=== PATIENT | female | born 2005 | race Caucasian/White ===

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

== ENCOUNTER 2023-04-27 14:26 | Emergency (ER) | payer OTHER, SELFPAY ==
[2023-04-27 15:12] VITALS: BP 125/64; PULSE 91; RESP 18; TEMP 37.1; O2SAT 98; BMI 40.4
--- NOTE | 2023-04-27 15:16 | ED.ABDPAIN ---
HPI - Abdominal Pain General Chief Complaint: Back Pain/Injury Stated Complaint: black stools Time Seen by Provider: 04/27/23 18:17 Source: patient and old records reviewed Mode of arrival: ambulatory Limitations: no limitations History of Present Illness HPI narrative: 17 yo female with PMH of anxiety, depression here with c/o constipation for months noted black stools for a few days no pepto or Fe - just had normal colored stools. strains and has low back pain. no brb no hx of GIB, not on thinners, refuses rectal exam - tried miralax no relief MD elicited complaint: abdominal pain Pertinent past history: constipation Onset (ago): month(s) (1) Pain Consistency: intermittent Location: diffuse Severity: mild Quality: cramping Radiation: none Migration to: no migration Exacerbating factors: movement Relieving factors: nothing Context: other (hx of same) Associated symptoms: constipation Related Data Home Medications Medication Instructions Recorded Confirmed guanfacine 1 mg tablet 1 mg PO DAILY 10/25/22 10/25/22 sertraline 50 mg tablet 50 mg PO DAILY 10/25/22 10/25/22 Previous Rx's Medication Instructions Recorded benzoyl peroxide 10 % topical gel 1 appl topical DAILY #90 grams 01/16/22 polyethylene glycol 3350 17 17 g PO DAILY #850 grams 10/25/22 gram/dose oral powder (Miralax) tretinoin 0.025 % topical gel 1 appl topical Q OTHER DAY #45 10/25/22 (Retin-A) grams docusate sodium 100 mg capsule 100 mg PO BID PRN constipation #60 04/27/23 (Colace) caps lactulose 20 gram/30 mL oral 20 g (30 mL) PO DAILY PRN laxative 04/27/23 solution effect #1,200 mL sennosides 8.6 mg capsule (senna) 8.6 mg PO BEDTIME PRN constipation 04/27/23 #60 caps Allergies Allergy/AdvReac Type Severity Reaction Status Date / Time No Known Allergies Allergy Verified 04/27/23 15:12 Review of Systems Review of Systems Constitutional : No Weight loss, No Fever, No Chills ENT/Mouth : No sore throat, No Rhinorrhea Eyes: No Swelling, No Redness Cardiovascular : No Chest Pain, No SOB, NoEdema Respiratory : No Cough, No Sputum, No Wheezing Gastrointestinal : no Nausea, no Vomiting, no Diarrhea, positive abdominal Pain, No Hematochezia Genitourinary : No Dysuria, No Urinary Frequency, No Hematuria, No Urgency Musculoskeletal : No joint pain, No Myalgias, No Joint Swelling Skin : No Skin Lesions, No rash Neuro : No Weakness, No Numbness, No Dizziness, No Headache Psych : No Anxiety/Panic, No Depression All other systems reviewed and are negative. [facility] Past Medical History Attestation statement: The following information was validated with the patient. Source: old records reviewed Onset Date is defined in the Problem List Problems that require an onset date and time if occurred within 24 hrs of arrival to the ED Aortic Dissection and Rupture; Neurologic impairment; Cardiopulmonary Arrest; Endotracheal Intubation; Insertion or Replacement of Mechanical Circulatory Assist Device Medical History Depression Surgical History No pertinent past surgical history Social History Social History (Updated 04/27/23 @ 18:24 by Marion Mustafa DO) Alcohol intake: never Patient Tobacco Use Status: Never used Tobacco Advance Directives: No Advance Directives Information Provided: No Cognitive needs: No Hearing needs: No Vision needs: No Physical Exam ED Vital Signs: Vital Signs - 24 hr 04/27/23 15:12 04/27/23 18:19 Temperature 98.8 F 98.3 F Pulse Rate 91 89 Respiratory Rate 18 19 Blood Pressure 125/64 124/68 Pulse Oximetry 98 98 Oxygen Delivery Method Room Air Room Air BMI result Body Mass Index 40.4 Appearance: Alert. Oriented X3. No acute distress. Eyes: Pupils equal, round and reactive to light. ENT: Pharynx normal. Neck: Normal inspection. Neck supple. CVS: Normal heart rate and rhythm. Pulses normal. Respiratory: No respiratory distress. Breath sounds normal. Abdomen: Soft and nontender. retal: pt refused Skin: Skin warm and dry. Normal skin color. Normal skin turgor. Extremities: No lower extremity edema. No calf ttp Neuro: Oriented X 3. No motor deficit. No sensory deficit. Course Course Course Narrative: This is a rapid medical exam. Deferred additional HPI, ROS, and PE to primary provider. 17 yo female with history of ADHD, mood disorder here with complaints of intermittent constipation for months, now black stools x 4 days. No abdominal pain or vomiting. Will obtain labs VSS Medical Decision Making Medical Decision Making MDM Narrative: 17 yo female with PMH of constipation for months - tried miralax strains and noted some dark stools no hx of thinners or GIB no pain but has pain in back trying to strain. Will obtain labs and occult stool - she refused rectal exam. Labs not consistent with GIB - start on bowel regimen and refer to GI Differential Diagnosis Differential Diagnoses: The differential diagnosis associated with the presentation includes constipation, pud, food exposure Admission/Observation Consideration of admission/observation: Escalation of care including admission/observation considered benign exam labs stable can be dc Lab Data 04/27/23 15:31 04/27/23 15:31 Labs: Lab Results 04/27/23 Range/Units 15:31 WBC 11.9 H (4.8-10.8) X10*3/uL RBC 4.87 (4.20-5.50) X10*6/uL Hgb 12.9 (12.0-16.0) g/dl Hct 39.9 (37.0-47.0) % MCV 81.9 (80.0-98.0) fL MCH 26.5 L (27.0-33.0) pg MCHC 32.3 (31.0-35.0) g/dl RDW 13.0 (11.0-16.0) % Plt Count 384 (160-400) X10*3/uL MPV 10.1 (9.4-12.3) fL Immature Gran % (Auto) 0.3 (0.0-0.4) % Neut % (Auto) 67.3 (45-73) % Lymph % (Auto) 21.5 (20-40) % Wolfe % (Auto) 4.6 (2-11) % Eos % (Auto) 5.5 H (0-4) % Baso % (Auto) 0.8 (0-2) % Lymph # (Auto) 2.6 (1.2-4.9) X10*3/uL Wolfe # (Auto) 0.6 (0.1-1.2) X10*3/uL Eos # (Auto) 0.7 H (0.0-0.4) X10*3/uL Baso # (Auto) 0.1 (0.0-0.2) X10*3/uL Abs Immat Gran (auto) 0.04 H (0.00-0.03) X10*3/uL Absolute Neuts (auto) 8.0 (2.0-8.3) x10*3/uL Absolute Nucleated RBC 0.000 (0.0-0.012) X10*3/uL Nucleated RBC % (auto) 0.0 (0.0-0.2) /100WBC Sodium 143 (135-145) mmol/L Potassium 4.2 (3.3-5.1) mmol/L Chloride 107 (96-108) mmol/L Carbon Dioxide 27 (22-29) mmol/L Anion Gap 13 (12-20) BUN 6 L (9-16) mg/dL Creatinine 0.71 (0.5-1.4) mg/dL Estim Creat Clear Calc 135.8 Estimated GFR > 60 Random Glucose 101 (60-115) mg/dL Calcium 9.8 (8.4-10.2) mg/dL Prescription Management I considered prescription management with: Other Discharge Plan Discharge Clinical Impression: Black stool Constipation Qualifiers: Constipation type: unspecified constipation type Qualified Code(s): K59.00 - Constipation, unspecified Patient Disposition: Home, Self-Care Instructions: Constipation (ED), Melena (ED) Additional Instructions: return for worsening symptoms, pain, dizziness or any other concerns. take a probiotic daily, drink plenty of fluids try for 60 ounces of water a day Prescriptions: New docusate sodium [Colace] 100 mg capsule 100 mg PO BID PRN (Reason: constipation) Qty: 60 0RF senna 8.6 mg capsule 8.6 mg PO BEDTIME PRN (Reason: constipation) Qty: 60 0RF lactulose 20 gram/30 mL solution 20 g PO DAILY PRN (Reason: laxative effect) Qty: 1200 0RF No Action benzoyl peroxide 10 % gel 1 appl topical DAILY Qty: 90 0RF guanfacine 1 mg tablet 1 mg PO DAILY sertraline 50 mg tablet 50 mg PO DAILY polyethylene glycol 3350 [Miralax] 17 gram/dose powder 17 g PO DAILY Qty: 850 0RF tretinoin [Retin-A] 0.025 % gel 1 appl topical Q OTHER DAY Qty: 45 0RF Referrals: Lazaro,Lucie D, RETAIL MANAGER-BC [Nurse Practitioner] - (call to schedule appointment ) Interventions: ED Discharge Assessment Last Done: 04/27/23 19:22 Discharge Date/Time: 04/27/23 19:23
[2023-04-27 18:19] VITALS: BP 124/68; PULSE 89; RESP 19; TEMP 36.8; O2SAT 98
== END 2023-04-27 19:23 | disposition home or self-care (01) ==
PROVIDERS: Emergency Provider Emergency Medicine
DX: K92.1 Melena (principal); K59.00 Constipation, unspecified
CPT/HCPCS: 36415; 80048; 85025; 99282; 99283

== ENCOUNTER 2023-06-22 02:24 | Emergency (ER) | payer OTHER, SELFPAY ==
--- NOTE | 2023-06-22 | ECG_ITS ---
Test Reason : CP Blood Pressure : / mmHG Vent. Rate : 095 BPM Atrial Rate : 095 BPM P-R Int : 158 ms QRS Dur : 082 ms QT Int : 364 ms P-R-T Axes : 038 000 025 degrees QTc Int : 457 ms Normal sinus rhythm Normal ECG No previous ECGs available Referred By: Generic ED Physician Electronically Signed By:JAMIE HOLLINGSWORTH
[2023-06-22 02:33] VITALS: BP 124/81; PULSE 115; PULSE 94; RESP 20; TEMP 37.1; O2SAT 95; BMI 40.9
[2023-06-22 02:46] LABS: MANUAL DIFF FLAG NO
[2023-06-22 02:47] LABS: Basophils Absolute Auto 0.1 X10*3/uL (0.0-0.2); Basophils Percent Auto 0.9 % (0-2); Eosinophils Absolute Auto 0.6 X10*3/uL (0.0-0.4); Eosinophils Percent Auto 5.2 % (0-4); Hematocrit 34.6 % (37.0-47.0); Hemoglobin 11.5 g/dl (12.0-16.0); Imm Gran Abs Auto 0.02 X10*3/uL (0.00-0.03); Imm Gran Pct Auto 0.2 % (0.0-0.4); Lymphocytes Absolute Auto 2.8 X10*3/uL (1.2-4.9); Lymphocytes Percent Auto 26.4 % (20-40); Mean Corpuscular HGB Conc 33.2 g/dl (31.0-35.0); Mean Corpuscular Hemoglobin 26.6 pg (27.0-33.0); Mean Corpuscular Volume 79.9 fL (80.0-98.0); Mean Platelet Volume 10.7 fL (9.4-12.3); Monocytes Absolute Auto 0.6 X10*3/uL (0.1-1.2); Monocytes Percent Auto 5.5 % (2-11); Neutrophils Absolute Auto 6.6 x10*3/uL (2.0-8.3); Neutrophils Percent Auto 61.8 % (45-73); Platelet Count 329 X10*3/uL (160-400); Red Blood Count 4.33 X10*6/uL (4.20-5.50); Red Cell Distribution Width 13.2 % (11.0-16.0); White Blood Count 10.7 X10*3/uL (4.8-10.8)
--- NOTE | 2023-06-22 02:50 | PC.NURSE ---
pt eneida from home reports taking an edible with an unknown amount of thc at 7pm, taking another at 9pm and reports 45 minutes ago episode of cheat pain, chest tightness and dizziness. ems arrived and gave pt 324 asprin and placed a 20G in the left wrist and gave 150ml of normal saline. pt normal sinus on tele .
--- NOTE | 2023-06-22 02:52 | ED.CHESTPAIN ---
HPI - Chest Pain General Chief Complaint: Chest Pain Stated Complaint: CP S/P INGE[facility]ING [facility]OWNIES PER EMS Time Seen by Provider: 06/22/23 02:31 Source: patient Mode of arrival: ambulatory Limitations: no limitations History of Present Illness HPI narrative: Patient's history of anxiety took 2 edibles 1st 1 at 19:00 other other at 21:00 for the first time also had caffeinated drinks just prior to arrival start feeling heart palpitation with discomfort and tightness and showed dizziness on arrival patient's heart rate was 115 sinus tachycardic denied any cocaine use Related Data Home Medications Medication Instructions Recorded Confirmed guanfacine 1 mg tablet 1 mg PO DAILY 10/25/22 10/25/22 sertraline 50 mg tablet 50 mg PO DAILY 10/25/22 10/25/22 Previous Rx's Medication Instructions Recorded benzoyl peroxide 10 % topical gel 1 appl topical DAILY #90 grams 01/16/22 polyethylene glycol 3350 17 17 g PO DAILY #850 grams 10/25/22 gram/dose oral powder (Miralax) tretinoin 0.025 % topical gel 1 appl topical Q OTHER DAY #45 10/25/22 (Retin-A) grams docusate sodium 100 mg capsule 100 mg PO BID PRN constipation #60 04/27/23 (Colace) caps lactulose 20 gram/30 mL oral 20 g (30 mL) PO DAILY PRN laxative 04/27/23 solution effect #1,200 mL sennosides 8.6 mg capsule (senna) 8.6 mg PO BEDTIME PRN constipation 04/27/23 #60 caps Allergies Allergy/AdvReac Type Severity Reaction Status Date / Time No Known Allergies Allergy Verified 06/22/23 02:33 Review of Systems Review of Systems: Yes all other systems are reviewed and are negative [facility] Past Medical History Medical History Depression Surgical History No pertinent past surgical history Social History Social History (Updated 04/27/23 @ 18:24 by Marion Mustafa DO) Alcohol intake: never Patient Tobacco Use Status: Never used Tobacco Smoked in Last 30 Days: No Use of substances other than those prescribed or required for medical reasons: Yes Substance Use Type: Marijuana Advance Directives: No Advance Directives Information Provided: Yes Patient : No Cognitive needs: No Hearing needs: No Vision needs: No Physical Exam Vital Signs: Vital Signs: Last Vital Signs Temp 98.6 F 06/22/23 06:09 Pulse 87 06/22/23 06:09 Resp 15 06/22/23 06:09 BP 118/57 L 06/22/23 06:09 Pulse Ox 98 06/22/23 06:09 O2 Del Method Room Air 06/22/23 06:09 BMI result Body Mass Index 40.9 Appearance: Alert. Oriented X3. No acute distress. Eyes: Anxious ENT: Pharynx normal. Oral Mucosa moist Neck: Normal inspection. Neck supple. CVS: Sinus tachycardia. Pulses normal. No murmur rub or gallop Respiratory: No respiratory distress. Equal air entry bilateral, no wheezing/rales/rhonchi Abdomen: Soft and nontender. Bowel sounds are present, no mass palpable, no CVA tenderness Skin: Skin warm and dry. Normal skin color. Normal skin turgor. Extremities: No lower extremity edema. No calf tenderness Neuro: Oriented X 3. Medications Administered Discontinued Medications Generic Name Dose Route Start Last Admin Trade Name Freq PRN Reason Stop Dose Admin Sodium Chloride 1,000 mls @ 999 mls/hr 06/22/23 03:01 06/22/23 04:11 Ns IV 06/22/23 04:01 Infused .Q1H1M ONE Infusion Lorazepam 1 mg 06/22/23 03:01 06/22/23 03:10 Lorazepam 1 Mg Tablet PO 06/22/23 03:02 1 mg ONCE ONE Administration Medical Decision Making Medical Decision Making [facility] Narrative: Patient feeling much better after lorazepam given in the ER labs are stable discharge patient home Lab Data [facility] Lab Attestation statement: I reviewed the patient's lab results. 06/22/23 02:41 06/22/23 03:13 Labs: Lab Results 06/22/23 06/22/23 Range/Units 02:41 03:13 WBC 10.7 (4.8-10.8) X10*3/uL RBC 4.33 (4.20-5.50) X10*6/uL Hgb 11.5 L (12.0-16.0) g/dl Hct 34.6 L (37.0-47.0) % MCV 79.9 L (80.0-98.0) fL MCH 26.6 L (27.0-33.0) pg MCHC 33.2 (31.0-35.0) g/dl RDW 13.2 (11.0-16.0) % Plt Count 329 (160-400) X10*3/uL MPV 10.7 (9.4-12.3) fL Immature Gran % (Auto) 0.2 (0.0-0.4) % Neut % (Auto) 61.8 (45-73) % Lymph % (Auto) 26.4 (20-40) % Mingo % (Auto) 5.5 (2-11) % Eos % (Auto) 5.2 H (0-4) % Baso % (Auto) 0.9 (0-2) % Lymph # (Auto) 2.8 (1.2-4.9) X10*3/uL Mingo # (Auto) 0.6 (0.1-1.2) X10*3/uL Eos # (Auto) 0.6 H (0.0-0.4) X10*3/uL Baso # (Auto) 0.1 (0.0-0.2) X10*3/uL Abs Immat Gran (auto) 0.02 (0.00-0.03) X10*3/uL Absolute Neuts (auto) 6.6 (2.0-8.3) x10*3/uL Absolute Nucleated RBC 0.000 (0.0-0.012) X10*3/uL Nucleated RBC % (auto) 0.0 (0.0-0.2) /100WBC Sodium 141 (135-145) mmol/L Potassium 3.8 (3.3-5.1) mmol/L Chloride 108 (96-108) mmol/L Carbon Dioxide 26 (22-29) mmol/L Anion Gap 11 L (12-20) BUN 9 (9-16) mg/dL Creatinine 0.77 (0.5-1.4) mg/dL Estim Creat Clear Calc 125.0 Estimated GFR > 60 Random Glucose 94 (60-115) mg/dL Calcium 9.6 (8.4-10.2) mg/dL Total Bilirubin 0.1 (0.0-1.0) mg/dL AST 13 (5-31) U/L ALT 15 (0-31) U/L Alkaline Phosphatase 78 (39-117) U/L Troponin I High Sens < 2.7 (<3.5-17.0) ng/L Total Protein 7.3 (6.5-8.0) g/dL Albumin 4.1 (3.5-5.0) g/dL Discharge Plan Discharge Clinical Impression: Accidental marijuana overdose, Anxiety Patient Disposition: Home, Self-Care Instructions: Cannabis Abuse (ED), Anxiety (ED) Additional Instructions: Do not take cannabis Take medication for anxiety as prescribed by your pcp Drink plenty of fluids Prescriptions: No Action docusate sodium [Colace] 100 mg capsule 100 mg PO BID PRN (Reason: constipation) Qty: 60 0RF senna 8.6 mg capsule 8.6 mg PO BEDTIME PRN (Reason: constipation) Qty: 60 0RF lactulose 20 gram/30 mL solution 20 g PO DAILY PRN (Reason: laxative effect) Qty: 1200 0RF benzoyl peroxide 10 % gel 1 appl topical DAILY Qty: 90 0RF guanfacine 1 mg tablet 1 mg PO DAILY sertraline 50 mg tablet 50 mg PO DAILY polyethylene glycol 3350 [Miralax] 17 gram/dose powder 17 g PO DAILY Qty: 850 0RF tretinoin [Retin-A] 0.025 % gel 1 appl topical Q OTHER DAY Qty: 45 0RF Interventions: ED Discharge Assessment Last Done: 06/22/23 06:09 Discharge Date/Time: 06/22/23 06:10
[2023-06-22] MEDS: 0.9 % Sodium Chloride 1,000 ML 999 ML IV (03:10)
[2023-06-22] MEDS: LORazepam 1 MG TABLET PO (03:10)
--- NOTE | 2023-06-22 03:11 | PC.NURSE ---
pt medicated per mar, pt tolerated well with water.
[2023-06-22 03:33] LABS: Alanine Aminotransferase 15 U/L (0-31); Albumin Level 4.1 g/dL (3.5-5.0); Alkaline Phosphatase 78 U/L (39-117); Anion Gap 11 (12-20); Aspartate Amino Transferase 13 U/L (5-31); Bilirubin Total 0.1 mg/dL (0.0-1.0); Blood Urea Nitrogen 9 mg/dL (9-16); Calcium 9.6 mg/dL (8.4-10.2); Carbon Dioxide 26 mmol/L (22-29); Chloride 108 mmol/L (96-108); Estimated Glomerular Filt Rate > 60; Glucose Random 94 mg/dL (60-115); Potassium 3.8 mmol/L (3.3-5.1); Sodium 141 mmol/L (135-145); Total Protein 7.3 g/dL (6.5-8.0)
[2023-06-22 03:38] LABS: Troponin-I High Sensitivity < 2.7 ng/L (<3.5-17.0)
[2023-06-22 04:17] VITALS: BP 114/62; PULSE 83; RESP 16; TEMP 36.5; O2SAT 98
[2023-06-22 06:09] VITALS: BP 118/57; PULSE 87; RESP 15; TEMP 37; O2SAT 98
== END 2023-06-22 06:10 | disposition home or self-care (01) ==
PROVIDERS: Emergency Provider Internal Medicine
DX: T40.711A Poisoning by cannabis, accidental (unintentional), initial encounter (principal); F41.9 Anxiety disorder, unspecified; R07.9 Chest pain, unspecified; R00.2 Palpitations; Y92.9 Unspecified place or not applicable; R42 Dizziness and giddiness; R00.0 Tachycardia, unspecified
CPT/HCPCS: 36415; 80053; 84484; 85025; 93005; 96360; 99284; 99285

== ENCOUNTER → 2023-06-22 02:36 | Outpatient (BNV) | payer OTHER, SELFPAY | PROVIDERS: Emergency Provider Internal Medicine; Visit Provider Internal Medicine | DX: R07.9 Chest pain, unspecified (principal) | CPT/HCPCS: 93010 ==

== ENCOUNTER 2023-09-04 03:24 | Emergency (ER) | payer MEDICAID, SELFPAY ==
[2023-09-04 03:25] VITALS: BP 126/91; PULSE 97; RESP 18; TEMP 36.8; O2SAT 98; BMI 38.6
--- NOTE | 2023-09-04 04:53 | ECG_ITS ---
Test Reason : ANXIETY Blood Pressure : / mmHG Vent. Rate : 078 BPM Atrial Rate : 078 BPM P-R Int : 154 ms QRS Dur : 078 ms QT Int : 386 ms P-R-T Axes : 028 007 023 degrees QTc Int : 440 ms Normal sinus rhythm Normal ECG When compared with ECG of 22-JUN-2023 02:36, No significant change was found Referred By: Marion Mustafa Electronically Signed By:CHRISTO SAENZ MD
--- NOTE | 2023-09-04 05:00 | ED.ANXIETY ---
HPI - Anxiety General Chief Complaint: Anxiety Stated Complaint: anxiety Time Seen by Provider: 09/04/23 04:47 Source: patient Mode of arrival: ambulatory Limitations: no limitations History of Present Illness HPI narrative: 18 yo female with PMH of anxiety, mood disorder notes recent change of medications on paroxetine and lorazepam states she has funny feeling in her head at times then today had increased anxiety and feeling short of breath and like she cannot swallow MD complaint: anxiety Onset (ago): day(s) Symptoms: dyspnea Severity: moderate Quality: intermittent Place: home History of similar episodes: Yes Provoking factors: none known Relieving factors: nothing Exacerbating factors: nothing Associated symptoms: other (feels she cannot swallow at times) Related Data Home Medications ?Medication ?Instructions ?Recorded ?Confirmed guanfacine 1 mg tablet 1 mg PO DAILY 10/25/22 10/25/22 sertraline 50 mg tablet 50 mg PO DAILY 10/25/22 10/25/22 Previous Rx's ?Medication ?Instructions ?Recorded benzoyl peroxide 10 % topical gel 1 appl topical DAILY #90 grams 01/16/22 polyethylene glycol 3350 17 17 g PO DAILY #850 grams 10/25/22 gram/dose oral powder (Miralax) tretinoin 0.025 % topical gel 1 appl topical Q OTHER DAY #45 10/25/22 (Retin-A) grams docusate sodium 100 mg capsule 100 mg PO BID PRN constipation #60 04/27/23 (Colace) caps lactulose 20 gram/30 mL oral 20 g (30 mL) PO DAILY PRN laxative 04/27/23 solution effect #1,200 mL sennosides 8.6 mg capsule (senna) 8.6 mg PO BEDTIME PRN constipation 04/27/23 #60 caps Allergies Allergy/AdvReac Type Severity Reaction Status Date / Time No Known Allergies Allergy Verified 09/04/23 03:31 Review of Systems Review of Systems: Constitutional : No Fever, No Chills ENT/Mouth : No Ear Pain, No Nasal Congestion, No sore throat Eyes: No Eye Pain, No Swelling, No Redness Cardiovascular : No Chest Pain, pos SOB Respiratory : No Cough, No Sputum, No Dyspnea Gastrointestinal : No Nausea, No Vomiting, No Diarrhea, No Hematochezia, No Melena Genitourinary : No Dysuria, No Urinary Frequency, No Hematuria Musculoskeletal : No Myalgias Skin : No Skin Lesions, No rash Neuro : No Weakness, No Numbness, No Paresthesias, No Dizziness, No Headache Psych : positive Anxiety, positive Depression, no SI/HI All other systems reviewed and are negative [facility] Past Medical History Attestation statement: The following information was validated with the patient. Source: old records reviewed Medical History Depression Surgical History No pertinent past surgical history Social History Social History Alcohol intake: never Patient Tobacco Use Status: Never used Tobacco Substance Use Type: Marijuana Advance Directives: No Advance Directives Information Provided: No Do you have a plan to hurt others: No Plan Cognitive needs: No Hearing needs: No Vision needs: No Physical Exam Vital Signs: Vital Signs: Last Vital Signs Temp 98.2 F 09/04/23 03:25 Pulse 97 09/04/23 03:25 Resp 18 09/04/23 03:25 BP 126/91 H 09/04/23 03:25 Pulse Ox 98 09/04/23 03:25 O2 Del Method Room Air 09/04/23 03:25 BMI result Body Mass Index 38.6 Appearance: Alert. Oriented X3. No acute distress. Eyes: Pupils equal, round and reactive to light. ENT: Pharynx normal. no swelling noted Neck: Normal inspection. Neck supple. CVS: Normal heart rate and rhythm. Pulses normal. Respiratory: No respiratory distress. Breath sounds normal. Abdomen: Soft and nontender. Skin: Skin warm and dry. Normal skin color. Normal skin turgor. Extremities: No lower extremity edema. No calf ttp Neuro: Oriented X 3. No motor deficit. No sensory deficit. Medical Decision Making Medical Decision Making MDM Narrative: 18 yo female here with anxiety and feeling dyspnea along with feeling like she cannot swallow - she has apointmetn with psychiatrist today I am not worried about any acute mental health issues. She feels she could have had heart attack today she has no risk factors. She is not tachycardic or hypoxic to suggest VTE I suspect her symptoms are related to anxiety, EKG ordered Differential Diagnosis Differential Diagnoses: The differential diagnosis associated with the presentation includes anxiety Independent Interpretation I performed an independent interpretation of an: EKG Interpretation: Rate: 78 Rhythm: NSR [place]: normal Normal P waves. Normal LUCIA. Normal QRS complex. ST T wave : normal no BETH qTC: 440 prior studies: no acute ischemia The study has been interpreted contemporaneously by me. . External Record Review External record reviewed: Inpatient record Discharge Plan Discharge Clinical Impression: Anxiety Patient Disposition: Home, Self-Care Instructions: Anxiety (ED) Additional Instructions: follow up with your psychiatrist today, your EKG was normal return for any worsening symptoms or concerns. Prescriptions: No Action docusate sodium [Colace] 100 mg capsule 100 mg PO BID PRN (Reason: constipation) Qty: 60 0RF senna 8.6 mg capsule 8.6 mg PO BEDTIME PRN (Reason: constipation) Qty: 60 0RF lactulose 20 gram/30 mL solution 20 g PO DAILY PRN (Reason: laxative effect) Qty: 1200 0RF benzoyl peroxide 10 % gel 1 appl topical DAILY Qty: 90 0RF guanfacine 1 mg tablet 1 mg PO DAILY sertraline 50 mg tablet 50 mg PO DAILY polyethylene glycol 3350 [Miralax] 17 gram/dose powder 17 g PO DAILY Qty: 850 0RF tretinoin [Retin-A] 0.025 % gel 1 appl topical Q OTHER DAY Qty: 45 0RF Print Language: Romansh
[2023-09-04 05:34] VITALS: BP 126/91; PULSE 97; RESP 18; TEMP 36.8; O2SAT 98
== END 2023-09-04 05:34 | disposition home or self-care (01) ==
PROVIDERS: Emergency Provider Emergency Medicine
DX: F41.9 Anxiety disorder, unspecified (principal); F32.A Depression, unspecified; R13.10 Dysphagia, unspecified; R06.00 Dyspnea, unspecified
CPT/HCPCS: 93005; 99283

== ENCOUNTER → 2023-09-04 04:53 | Outpatient (BNV) | payer MEDICAID, SELFPAY | PROVIDERS: Emergency Provider Emergency Medicine; Visit Provider Internal Medicine Cardiovascular Disease | DX: F41.9 Anxiety disorder, unspecified (principal) | CPT/HCPCS: 93010 ==

== ENCOUNTER 2023-11-25 15:14 | Outpatient (AMB) | payer OTHER, SELFPAY ==
[2023-11-25 15:15] VITALS: BP 120/78; PULSE 81; O2SAT 99; BMI 39.1
--- NOTE | 2023-11-25 15:15 | A.OFFPC_ITS ---
Vital Signs 11/25/23 15:15 Height 5 ft 1 in Weight 207 lb 0.4 oz BMI 39.1 BP 120/78 Blood Pressure Location Lt brachial Position Sitting Pulse 81 Pulse Source Pulse Oximeter Pulse Oximetry (%) 99 Oxygen Delivery Method Room Air Intake Visit Reasons: Transfer from [facility] Office Coordinator Required: No Allergies No Known Allergies Allergy (Verified 11/25/23 15:29) Medication List - Last Reconciled 11/25/23 by Priscilla Muñoz PA-C benzoyl peroxide 10% 1 appl topical DAILY docusate sodium (Colace) 100 mg PO BID PRN lactulose 20 grams (30 mL) PO DAILY PRN sertraline 50 mg PO DAILY Tobacco use date assessed: 11/25/23 Dental Screening Dental Screen Date: 11/25/23 Did you have a dental visit in the last 12 months?: No Did you have a dental problem in the last 6 months where you did not have access to dental care?: No HPI Transfer from [facility] HPI Details 18-year-old female with past medical his tory of anxiety and mood diso rder last seen by eyelet machine operator coming in to establish care for the 1st time.? In review of the notes, patient was seen in the ED 08/2023 for anxiety after change in medication, EKG was normal and patient was discharged home. Also seen in the ED 06/2023 for anxiety and accidental marijuana overdose. Work up negative and discharged home. Patient states that she has not been seen by an adult primary care yet. She does not regularly follow with Gynecology but she does report 1 normal Pap smear in the past. She regularly sees Psychiatry through [facility] and has trialed different medications for her anxiety and depression and is due to start her sertraline this week. He also has lorazepam for breakthrough anxiety attacks. She has no acute problems today. COUNTS INCLUDE 234 BEDS AT THE [facility] Surgical History (Updated 11/25/23 @ 15:32 by Priscilla Muñoz PA-C) Vulcan teeth removed Social History Alcohol intake: never Patient Tobacco Use Status: Never used Tobacco Substance Use Type: Marijuana service: No Cognitive needs: No Hearing needs: No Vision needs: No Female Reproductive History Menstrual Age of Menarche: 13 Questionnaire PHQ-9 Over the last 2 weeks, how often have you been bothered by any of the following problems? 1. Little interest or pleasure in doing things: not at all 2. Feeling down, depressed, or hopeless: not at all 3. Trouble falling or staying asleep, or sleeping too much: not at all 4. Feeling tired or having little energy: not at all 5. Poor appetite or overeating: not at all 6. Feeling bad about yourself - or that you are a failure or have let yourself or your family down: not at all 7. Trouble concentrating on things, such as reading the newspaper or watching television: not at all 8. Moving or speaking so slowly that other people could have noticed. Or the opposite - being so fidgety or restless that you have been moving around a lot more than usual: not at all 9. Thoughts that you would be better off or of hurting yourself in some way: not at all Total score: 0 Depression Screening Interpretation: Negative Depression Screening Done: Yes 33061 - PHQ-9 Billing: Yes Source: Developed by Drs. Ashkan Yang, Lise Toure, Gray Turner and colleagues, with an educational marie from [email or web address]. Thrive Questionnaire Date Thrive assessed: 11/25/23 I am a: Patient What is your living situation today?: I have a steady place to live Within the past 12 months, did the food you bought not last and you didn't have the money to get more?: Never true Within the past 12 months, did you worry whether your food would run out before you got money to buy more?: Never true Do you have trouble paying for medicines?: No Do you have trouble getting transportation to medical appointments?: No Do you have trouble paying your heating and electricity bill?: No Do you have trouble taking care of your child, family member or friend?: No Do you have trouble with day-to-day activities such as bathing, preparing meals, shopping, managing finances, etc.?: No Are you currently unemployed and looking for a job?: No Are you interested in more education?: No Please select the resources that you would like help with: None Currently or been in a relationship where the following occur: No concerns reported THRIVE Score: 0 AUDIT C Alcohol Use Questionnaire (AUDIT-C) 1. How often do you have a drink containing alcohol?: Never 3. How often do you have six or more drinks on one occasion?: Never Total Score: 0 JUNIOR-7 AMB Questionnaire JUNIOR-7 Date JUNIOR - 7 assessed: 11/25/23 Feeling nervous, anxious, or on edge: 3 = Nearly every day Not being able to stop or control worryin = Nearly every day Worrying too much about different things: 3 = Nearly every day Trouble relaxin = Nearly every day Being so restless that it is hard to sit still: 3 = Nearly every day Becoming easily annoyed or irritable: 3 = Nearly every day Feeling afraid as if something awful might happen: 3 = Nearly every day Total JUNIOR-7 score (0-4 normal; 5-9 mild; 10-14 moderate; 15-21 severe): 21 Source: Developed by Drs. Ashkan Yang, Lise Toure, Gray Turner and colleagues, with an educational marie from [email or web address]. JUNIOR-7 Assessment Billing JUNIOR-7 Assessment Tool: JUNIOR-7 Assessment 58776 Review of Systems Const Denies body aches, Denies fatigue, Denies fever(s), Denies frequent falls, Denies headache(s) and Denies weakness Eyes Reports no additional complaints and Denies change in vision ENT Denies dysphagia, Denies dizziness, Denies facial pain, Denies headache(s), Denies nasal congestion and Denies odynophagia Card Denies chest pain, Denies syncope, Denies irregular heart rhythm, Denies leg edema, Denies lightheadedness and Denies dyspnea Resp Denies cough and Denies dyspnea GI Denies constipation, Denies dysphagia, Denies dyspepsia, Denies diarrhea, Denies nausea, Denies odynophagia and Denies vomiting Denies urinary frequency, Denies dysuria, Denies urinary hesitancy and Denies urinary urgency Musc Denies back pain and Denies myalgias Skin/Breast Reports system reviewed and no additional complaints, except as documented Neuro Denies dizziness, Denies syncope, Denies frequent falls, Denies headache(s) and Denies weakness Psych Reports no additional complaints Endo Denies fatigue Physical exam (Primary Care) Vital Signs: Last Vital Signs Pulse 81 11/25/23 15:15 BP 120/78 11/25/23 15:15 Pulse Ox 99 11/25/23 15:15 Oxygen Delivery Method Room Air 11/25/23 15:15 BMI result Body Mass Index 39.1 Tobacco/Smoking Status: Tobacco use Status Tobacco use date assessed 11/25/23 11/25/23 15:16 Patient Tobacco Use Status Never used Tobacco 11/25/23 15:16 PHQ-9: PHQ-9 Score PHQ-9: Total score 0 11/25/23 15:16 Depression Screening Interpretation: Negative Thrive Assessment: Date of Thrive Assessment Date Thrive assessed 11/25/23 11/25/23 15:16 Currently or been in a relationship where the following occur: No concerns reported Const General: cooperative, healthy appearing, comfortable and no acute distress Orientation/consciousness: patient oriented x3 HENMT Head: Yes normocephalic Ears: hearing grossly normal bilaterally, external ears normal, TM's normal bilaterally and EAC's normal General nose exam: Normal external nose present Face and sinus: Yes normal facial exam and Yes sinuses nontender Mouth: Normal oral and palatal mucosa present and tongue normal Throat: Yes posterior oropharynx normal Eyes General: appearance normal, both eyes and all related structures Conjunctivae: conjunctivae normal Pupils: Equal, round and reactive pupils present EOM: EOMs intact bilaterally and No Nystagmus present Neck Neck: Yes normal visual inspection, Yes full ROM and Yes no lymphadenopathy Chest Chest palpation & inspection: normal inspection of the chest Resp Effort & Inspection: normal respiratory effort Auscultation: clear to auscultation bilaterally, no crackles, no rales, no rhonchi, no wheezes and breath sounds present Cardio Rate: regular rate Rhythm: regular rhythm Peripheral pulses: radial pulses present and dorsalis pedis present GI Inspection: Yes normal to inspection and No Abdominal wall edema Palpation (GI): Soft to palpation, not firm and nontender Auscultation: normal bowel sounds Rectal Exam - Female: deferred General: Yes no CVA tenderness Back/Spine/Pelvis Back: no CVA tenderness Skin Other: Patient has mild papular pustular acne on the face. Scattered closed comedones on upper back Neuro General: patient oriented x3 Cranial nerves: Yes Equal, round and reactive pupils present, Yes Midline tongue present, Yes Ability to bilaterally elevate shoulders present and No Nystagmus present Gait exam (Neuro): Normal gait present Extrem General: Yes normal to inspection, Yes full ROM, No no pedal edema and No edema Psych Speech and movement: Normal speech and movement present Affect: normal affect Insight: Good insight present (Psych) Judgement: Good judgement present (Psych) Assessment and Plan Assessment & Plan (1) Anxiety: Code(s): F41.9 - Anxiety disorder, unspecified Plan: Continue to follow with [facility] Psychiatry. On lorazepam as needed. (2) Mood disorder: Comment: Follows with [facility]. Code(s): F39 - Unspecified mood [affective] disorder Plan: Continue to follow with [facility]. Currently on sertraline 50 mg. (3) Acne vulgaris: Code(s): L70.0 - Acne vulgaris Plan: Previously used benzoyl peroxide but has run out, this was refilled today. Referral to Dermatology for further management of acne. (4) Constipation: Code(s): K59.00 - Constipation, unspecified Plan: Patient has recurrent constipation and uses lactulose as needed. Advised patient trial a [id number] fiber for daily use. Increase water intake, exercise, and diet modification. (5) Annual physical exam: Code(s): Z00.00 - Encounter for general adult medical examination without abnormal findings Plan: Referral to gynecology placed today. Patient is up-to-date on all recommended vaccinations and routine screenings for her age. Routine blood work ordered. Follow up in 1 year. Plan This note was constructed using voice recognition software. While every effort has been made to ensure accuracy and research software engineer, still areas may have been included sometimes these areas may affect the content or meeting of the given symptoms. Total time spent caring for the patient today was 40 minutes. This includes time spent before the visit reviewing the chart, time spent during the visit, and time spent after the visit and documentation. Orders: Orders Complete Blood Count Auto Diff Today Z00.00 - Encounter for general adult medical examination without abnormal findings Comprehensive Met. Panel Today Z00.00 - Encounter for general adult medical examination without abnormal findings Free T4 (Free Thyroxine) Today Z00.00 - Encounter for general adult medical examination without abnormal findings Vitamin D 25-OH (D2 and D3) Today Z00.00 - Encounter for general adult medical examination without abnormal findings TSH reflex Free T4 Today Z00.00 - Encounter for general adult medical examination without abnormal findings Vitamin B12 and Folate Today Z00.00 - Encounter for general adult medical examination without abnormal findings Referrals [facility] Referral Z00.00 - Encounter for general adult medical examination without abnormal findings Dermatology Referral L70.0 - Acne vulgaris Medications: New lorazepam 0.5 mg PO DAILY PRN Refilled benzoyl peroxide 10% 1 appl topical DAILY 90 grams 0RF L70.0 - Acne vulgaris lactulose 20 grams (30 mL) PO DAILY PRN 1,200 mL 0RF laxative effect Coding Level of Care Code New Pt Prev Care 18-39yr([id number] Diagnoses Anxiety F41.9 Mood disorder F39 Acne vulgaris L70.0 Constipation K59.00 Annual physical exam Z00.00 Additional Codes JUNIOR-7 Assessment Billing - JUNIOR-7 Assessment Tool: JUNIOR-7 Assessment 94509 ([id number])
== END 2023-11-25 15:56 | disposition home or self-care (01) ==
LOC: HO.HMGH 15:14
DX: Z00.00 Encounter for general adult medical examination without abnormal findings (principal); F41.9 Anxiety disorder, unspecified; F39 Unspecified mood [affective] disorder; L70.0 Acne vulgaris; K59.00 Constipation, unspecified
CPT/HCPCS: 99385

== ENCOUNTER 2025-04-20 13:28 | Outpatient (AMB) | payer OTHER, SELFPAY ==
--- NOTE | 2025-04-20 13:55 | MHC.PC.OV ---
Vital Signs 04/20/25 13:56 Height 5 ft 1 in Weight 226 lb 4 oz BMI 42.7 BP 116/58 L Blood Pressure Location Lt brachial Position Sitting Respiration 16 Pulse 81 Pulse Source Pulse Oximeter Temp 99.6 F Temp Source Temporal Artery Scan Pulse Oximetry (%) 98 Oxygen Delivery Method Room Air Intake Visit Reasons: annual exam Hemp Fiber Taker Off Required: No Accompanied by: Self / Same As Patient Allergies No Known Allergies Allergy (Verified 04/20/25 14:00) Medication List - Last Reconciled 04/20/25 by Priscilla Muñoz PA-C buspirone mg PO docusate sodium (Colace) 100 mg PO BID PRN lactulose 20 grams (30 mL) PO DAILY PRN lorazepam 0.5 mg PO DAILY PRN Tobacco use date assessed: 04/20/25 Dental Screening Dental Screen Date: 04/20/25 Did you have a dental visit in the last 12 months?: Yes Did you have a dental problem in the last 6 months where you did not have access to dental care?: No Was dental information given to patient?: Patient has dentist HPI annual exam HPI Details 19-year-old female with past medical history of acne vulgaris, anxiety and mood disorder last seen 11/2023 coming in for annual exam. Presenting for her annual wellness examination, with specific concerns regarding dyspareunia and contraception. She is engaged and reports that this is her first time attempting intercourse; however, she experiences significant tightness and pain upon attempted penetration, which prevents intercourse. She states these symptoms persist despite the use of lubrication and foreplay. The patient has never used tampons and confirms she has not previously had intercourse. She has a history of anxiety and depression, for which she sees a therapist and psychiatrist at [facility], last seen in January or February. She discontinued sertraline due to side effects and is now taking buspirone, which has been effective. The patient reports her chronic constipation has been improving and she is using lactulose less frequently. She also reports insomnia, with difficulty sleeping and going to bed as late as 5 a.m., and has tried non-pharmacological methods like listening to nature sounds without success. pap smear: referral placed today vaccines: flu and TDAP given today PFSH Surgical History [place] teeth removed Social History Housing: Apartment Alcohol intake: never Patient Tobacco Use Status: Never used Tobacco e-Cigarette/Vaping Use: Former Use Substance Use Type: Marijuana service: No Current occupational status: unemployed and student Cognitive needs: No Hearing needs: No Vision needs: No Female Reproductive History Menstrual Age of Menarche: 13 Questionnaire PHQ-9 Over the last 2 weeks, how often have you been bothered by any of the following problems? 1. Little interest or pleasure in doing things: not at all 2. Feeling down, depressed, or hopeless: several days 3. Trouble falling or staying asleep, or sleeping too much: nearly every day 4. Feeling tired or having little energy: more than half the days 5. Poor appetite or overeating: not at all 6. Feeling bad about yourself - or that you are a failure or have let yourself or your family down: not at all 7. Trouble concentrating on things, such as reading the newspaper or watching television: nearly every day 8. Moving or speaking so slowly that other people could have noticed. Or the opposite - being so fidgety or restless that you have been moving around a lot more than usual: more than half the days 9. Thoughts that you would be better off or of hurting yourself in some way: not at all Total score: 11 Depression Screening Interpretation: Positive Depression Screening Follow-up: Existing condition and In treatment Depression Screening Done: Yes 26735 - PHQ-9 Billing: Yes Source: Developed by Drs. Ashkan Yang, Lise Toure, Gray Turner and colleagues, with an educational marie from [employer]. Thrive Questionnaire Date Thrive assessed: 04/20/25 I am a: Patient What is your living situation today?: I have a steady place to live Within the past 12 months, did the food you bought not last and you didn't have the money to get more?: Never true Within the past 12 months, did you worry whether your food would run out before you got money to buy more?: Never true Do you have trouble paying for medicines?: No Do you have trouble getting transportation to medical appointments?: Yes Do you have trouble paying your heating and electricity bill?: No Do you have trouble taking care of your child, family member or friend?: No Do you have trouble with day-to-day activities such as bathing, preparing meals, shopping, managing finances, etc.?: No Are you currently unemployed and looking for a job?: No Are you interested in more education?: No Please select the resources that you would like help with: None Currently or been in a relationship where the following occur: No concerns reported THRIVE Score: 1 AUDIT C Alcohol Use Questionnaire (AUDIT-C) 1. How often do you have a drink containing alcohol?: Never 3. How often do you have six or more drinks on one occasion?: Never Total Score: 0 JUNIOR-7 AMB Questionnaire JUNIOR-7 Date JUNIOR - 7 assessed: 04/20/25 Feeling nervous, anxious, or on edge: 3 = Nearly every day Not being able to stop or control worryin = Nearly every day Worrying too much about different things: 3 = Nearly every day Trouble relaxin = More than half the days Being so restless that it is hard to sit still: 3 = Nearly every day Becoming easily annoyed or irritable: 1 = Several days Feeling afraid as if something awful might happen: 3 = Nearly every day Total JUNIOR-7 score (0-4 normal; 5-9 mild; 10-14 moderate; 15-21 severe): 18 Source: Developed by Drs. Ashkan Yang, Lise Toure, Gray Turner and colleagues, with an educational marie from [employer]. JUNIOR-7 Assessment Billing JUNIOR-7 Assessment Tool: JUNIOR-7 Assessment 91657 Review of Systems Const Denies body aches, Denies fatigue, Denies fever(s), Denies frequent falls, Denies headache(s) and Denies weakness Eyes Reports no additional complaints and Denies change in vision ENT Denies dysphagia, Denies dizziness, Denies facial pain, Denies headache(s), Denies nasal congestion and Denies odynophagia Card Denies chest pain, Denies syncope, Denies irregular heart rhythm, Denies leg edema, Denies lightheadedness and Denies dyspnea Resp Denies cough and Denies dyspnea GI Denies abdominal pain, Reports constipation, Denies dysphagia, Denies dyspepsia, Denies diarrhea, Denies nausea, Denies odynophagia and Denies vomiting Denies urinary frequency, Denies dysuria, Denies urinary hesitancy and Denies urinary urgency Musc Denies back pain and Denies myalgias Skin/Breast Reports system reviewed and no additional complaints, except as documented Neuro Denies dizziness, Denies syncope, Denies frequent falls, Denies headache(s) and Denies weakness Psych Reports no additional complaints Endo Denies fatigue Physical exam (Primary Care) Vital Signs: Last Vital Signs Temp 99.6 F 04/20/25 13:56 Pulse 81 04/20/25 13:56 Resp 16 04/20/25 13:56 BP 116/58 L 04/20/25 13:56 Pulse Ox 98 04/20/25 13:56 Oxygen Delivery Method Room Air 04/20/25 13:56 BMI result Body Mass Index 42.7 Tobacco/Smoking Status: Tobacco use Status Tobacco use date assessed 04/20/25 04/20/25 13:57 Patient Tobacco Use Status Never used Tobacco 04/20/25 13:57 e-Cigarette/Vaping Use Former Use 04/20/25 14:03 PHQ-9: PHQ-9 Score PHQ-9: Total score 11 04/20/25 14:40 Depression Screening Interpretation: Positive Depression Screening Follow-up: Existing condition and In treatment Thrive Assessment: Date of Thrive Assessment Date Thrive assessed 04/20/25 04/20/25 14:04 Currently or been in a relationship where the following occur: No concerns reported Const General: cooperative, healthy appearing, comfortable and no acute distress Orientation/consciousness: patient oriented x3 HENMT Head: Yes normocephalic Ears: hearing grossly normal bilaterally, external ears normal, TM's normal bilaterally and EAC's normal General nose exam: Normal external nose present Face and sinus: Yes normal facial exam and Yes sinuses nontender Mouth: Normal oral and palatal mucosa present and tongue normal Throat: Yes posterior oropharynx normal Eyes General: appearance normal, both eyes and all related structures Conjunctivae: conjunctivae normal Pupils: Equal, round and reactive pupils present EOM: EOMs intact bilaterally and No Nystagmus present Neck Neck: Yes normal visual inspection, Yes full ROM and Yes no lymphadenopathy Chest Chest palpation & inspection: normal inspection of the chest Resp Effort & Inspection: normal respiratory effort Auscultation: clear to auscultation bilaterally, no crackles, no rales, no rhonchi, no wheezes and breath sounds present Cardio Rate: regular rate Rhythm: regular rhythm Peripheral pulses: radial pulses present and dorsalis pedis present GI Inspection: Yes normal to inspection and No Abdominal wall edema Palpation (GI): Soft to palpation, not firm and nontender Auscultation: normal bowel sounds Rectal Exam - Female: deferred General: Yes no CVA tenderness Back/Spine/Pelvis Back: no CVA tenderness Skin General skin exam: no rashes or lesions noted Neuro General: patient oriented x3 Cranial nerves: Yes Equal, round and reactive pupils present, Yes Midline tongue present, Yes Ability to bilaterally elevate shoulders present and No Nystagmus present Gait exam (Neuro): Normal gait present Extrem General: Yes normal to inspection, Yes full ROM, No no pedal edema and No edema Psych Speech and movement: Normal speech and movement present Affect: normal affect Insight: Good insight present (Psych) Judgement: Good judgement present (Psych) Office Procedures Flu Questionnaire Does the patient have a severe egg allergy?: No Does the patient have severe life threatening allergies?: No Does the patient have a fever or illness today?: No Has the patient ever had Guillain-[place] Syndrome?: No Has the patient ever had any past reaction to a flu shot?: No Immunizations Fluarix [id number] (PF) 45 mcg (15 mcg x 3)/0.5 mL IM syringe Performing Provider: Priscilla Muñoz PA-C Performing Location: [facility] Administered by: Coral Rodriguez LPN on 04/20/25 14:39 Dose Route Admin Location Dispensed Lot Number Expiration Date [facility] Occupational Therapy Instructor 0.5 mL IM Left Deltoid 0.5 mL [id number] 10/19/25 53435-326-12 Seat 14A VIS Given Date VIS Provided VIS Publication Date 04/20/25 Single Vaccine 24 Eligibility Eligibility Date Funding Source Not [facility] Eligible 04/20/25 Private Boostrix Tdap 2.5 Lf unit-8 mcg-5 Lf/0.5 mL intramuscular syringe Performing Provider: Priscilla Muñoz PA-C Performing Location: [facility] Administered by: Coral Rodriguez LPN on 04/20/25 14:39 Dose Route Admin Location Dispensed Lot Number Expiration Date [employer] Occupational Therapy Instructor 0.5 mL IM Left Deltoid 0.5 mL [id number] 10/02/27 02519-253-75 Seat 14A Total Dispensed Waste 0.5 mL 0 % VIS Given Date VIS Provided VIS Publication Date 04/20/25 Single Vaccine 20 Eligibility Eligibility Date Funding Source Not [facility] Eligible 04/20/25 Private Coding Level of Care Code Est Pt Prev Care 18-39y(24111) Diagnoses Annual physical exam Z00.00 Acne vulgaris L70.0 Constipation K59.00 Anxiety F41.9 Mood disorder F39 Dyspareunia in female N94.10 Obesity (BMI 30-39.9) E66.9 Insomnia G47.00 Additional Codes JUNIOR-7 Assessment Billing - JUNIOR-7 Assessment Tool: JUNIOR-7 Assessment 35794 ([id number]) PHQ-9 - 69894 - PHQ-9 Billing: Yes ([id number]) Assessment & Plan Assessment & Plan (1) Annual physical exam: Code(s): Z00.00 - Encounter for general adult medical examination without abnormal findings Category: Medical Plan: Patient is up to date on all recommended routine screenings and vaccinations for her age. She was given flu and TDAP in the office today. I did order for updated blood work as well. Healthy diet and regular exercise is encouraged. PLan to follow up in one year or sooner as needed or pending blood work eval. (2) Acne vulgaris: Code(s): L70.0 - Acne vulgaris Category: Medical Plan: Referral was placed to dermatology today at patient request. (3) Constipation: Code(s): K59.00 - Constipation, unspecified Category: Medical Plan: Has been improving. Reminded about 3 rules of constipation; stay well hydrated, eat fiber and exercise. She will continue on lactulose prn. (4) Anxiety: Comment: [facility] Code(s): F41.9 - Anxiety disorder, unspecified Category: Medical Plan: Continue to follow with [facility] for counseling and medication management. She feels good on current medication regimen. (5) Mood disorder: Comment: Follows with [facility]. Code(s): F39 - Unspecified mood [affective] disorder Category: Medical Plan: see above (6) Dyspareunia in female: Code(s): N94.10 - Unspecified dyspareunia Category: Medical Plan: The patient reports pain with her first attempts at sexual intercourse, describing significant tightness that prevents penetration. Given that she has never had intercourse or used tampons, the primary consideration is introital stenosis or vaginismus. The plan is to refer the patient to a telephone supervisor for a comprehensive evaluation and management, which may include education on dilating devices. (7) Obesity (BMI 30-39.9): Code(s): E66.9 - Obesity, unspecified Category: Medical Plan: Healthy diet and regular exercise is encouraged. (8) Insomnia: Code(s): G47.00 - Insomnia, unspecified Category: Medical Plan: The patient reports difficulty sleeping and staying asleep, often going to bed around 5 a.m. Non-pharmacologic strategies suggested by her psychiatrist have not been effective. Manm-tzd-exknqfy options, including magnesium, melatonin, and occasional Benadryl, were suggested to aid with sleep. Plan This note was constructed using voice recognition software. While every effort has been made to ensure accuracy and lineman, still areas may have been included sometimes these areas may affect the content or meeting of the given symptoms. Total time spent caring for the patient today was 20 minutes. This includes time spent before the visit reviewing the chart, time spent during the visit, and time spent after the visit and documentation. Patient was informed and verbally consented to the use of an ambient scribe for clinic note documentation during this visit. Orders: Orders TSH reflex Free T4 Today Z13.29 - Encounter for screening for other suspected endocrine disorder Complete Blood Count Auto Diff Today Z13.0 - Encounter for screening for diseases of the blood and blood-forming organs and certain disorders involving the immune mechanism Lipid Panel Today Z13.220 - Encounter for screening for lipoid disorders TDaP Immunization Today Z23 - Encounter for immunization UA CC w/rflx Micro + Cult Today Z13.9 - Encounter for screening, unspecified Vitamin B12 and Folate Today Z13.21 - Encounter for screening for nutritional disorder Vitamin D 25-OH Total Today Z13.21 - Encounter for screening for nutritional disorder Comprehensive Met. Panel Today Z00.00 - Encounter for general adult medical examination without abnormal findings Influenza [id number] Immunization Today Z23 - Encounter for immunization Referrals BREAD ROOM HAND Referral N94.10 - Unspecified dyspareunia, Z12.4 - Encounter for screening for malignant neoplasm of cervix Dermatology Referral L70.0 - Acne vulgaris
[2025-04-20 13:56] VITALS: BP 116/58; PULSE 81; RESP 16; TEMP 37.6; O2SAT 98; BMI 42.7
--- OUTSIDE RECORDS SUMMARY | 2025-04-20 17:22 | XMS_ITS | Clinical Summary ---
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 Name Role Phone Unavailable Primary Care Provider Unavailabl e Social History Tobacco Use Types Packs/Day Years Used Date Smoking Tobacco: Never Assessed Comments Unknown Sex and Gender Information Value Date Recorded Sex Assigned at Female 09/06/2023 1:58 PM EDT Legal Sex Female 1:58 PM EDT Gender Identity Not on file Sexual Orientation Not on file Plan of Treatment Health Maintenance Due Date Last Done Comments Chlamydia and Gonorrhea Screening 2003 Depression Screening 2003 HIV Screening 2003 SDOH Screening 2003 Disability Screening 2003 Alcohol/Substance Use Screening 2015 Tobacco Screening 2015 Family Planning (PISQ) 2018 HPV Vaccines (1 - 3-dose series) 2018 Meningococcal B Vaccine (1 o f 2 - Standard) 2019 Hepatitis C Screening 2021 DTaP/Tdap/Td Vaccines (1 - Tdap) 2022 Hepatitis B Vaccines (1 of 3 - 19+ 3-dose series) 2022 Pap Smear 2024 COVID-19 Vaccine (1 - 2024-2 6 season) 2024 Influenza Vaccine (#1) 2024 Zoster Vaccines (1 of 2) 2053 RSV Patients and Pa tients Aged 60 years or older (1 - 1-dose 75+ series) 2078 HIB Vaccines Aged Out No longer eligi ble based on patient's age to complete this topic Hepatitis A Vaccines Aged Out No long er eligible based on patient's age to complete this topic IPV Vaccines Aged Out No longer eligi ble based on patient's age to complete this topic Meningococcal Vaccine Aged Out No dionisio brigid eligible based on patient's age to complete this topic Pneumococcal Vaccine: Pediat rics (0 to 5 Years) and At-Risk Patients (6 to 49) Years Aged Out No longer eligible b ased on patient's age to complete this topic RSV under 20 months Aged Out No longe r eligible based on patient's age to complete this topic Rotavirus Vaccines Aged Out No longer eligible based on patient's age to complete this topic Insurance [facility]
== END 2025-04-20 14:49 | disposition home or self-care (01) ==
LOC: HO.HMCH 13:28
DX: Z00.00 Encounter for general adult medical examination without abnormal findings (principal); L70.0 Acne vulgaris; K59.00 Constipation, unspecified; F41.9 Anxiety disorder, unspecified; F39 Unspecified mood [affective] disorder; N94.10 Unspecified dyspareunia; E66.9 Obesity, unspecified; G47.00 Insomnia, unspecified; Z23 Encounter for immunization